=== PATIENT | female | born 1950 | race Caucasian/White ===

== ENCOUNTER 2021-06-07 13:03 | Outpatient (CLI) | payer MEDICARE, SELFPAY | END 2021-06-07 13:04 | disposition home or self-care (01) | LOC: CSHMAMMO 13:03 | PROVIDERS: ATTEND Family Medicine | DX: R92.2 Inconclusive mammogram (principal) | CPT/HCPCS: 77066; G0279 ==

== ENCOUNTER 2022-07-26 08:30 | Outpatient (CLI) | payer MEDICARE | END 2022-07-26 08:31 | disposition home or self-care (01) | LOC: CSHMAMMO 08:30 | PROVIDERS: ATTEND Family Medicine | DX: Z12.31 Encounter for screening mammogram for malignant neoplasm of breast (principal); Z98.890 Other specified postprocedural states; Z85.42 Personal history of malignant neoplasm of other parts of uterus; Z80.3 Family history of malignant neoplasm of breast | CPT/HCPCS: 77063; 77067 ==